=== PATIENT | female | born 1990 | race Caucasian/White ===

== ENCOUNTER 2018-09-30 10:12 | Outpatient (REF) | payer OTHER, SELFPAY ==
--- NOTE | 2018-09-30 09:30 | PAPFT_PTH ---
PATIENT: Poly Valdivia LOC: [facility] U#:[id number] AGE/SX: 27/F ROOM: RE09/30/[address]: DAVID Main : 1990 BED: DIS: 09/30/2018 SPEC #: [id number] RECD: 09/30/18 12:49 STATUS: PAM REPawan #: [id number] JAKY: 09/30/18 09:[address]: Tatiana Cooper DEPT: [facility] RECD BY: Samantha Man ENTERED: 09/30/18 12:49 SP TYPE: PAPFT OTHR DR: Cristiana Smith Tissues: 1 - CX/ENDOCX FOR PAP SMEARS Procedures: PAP THIN PREP/[facility] Screening Comments: [id number]
== END 2018-09-30 10:32 ==
LOC: LBN 10:12
PROVIDERS: PCP Family Medicine; Visit Provider Nurse Practitioner Family
DX: Z12.4 Encounter for screening for malignant neoplasm of cervix (principal)
CPT/HCPCS: 88142

== ENCOUNTER 2019-04-30 11:22 | Outpatient (REF) | payer OTHER, SELFPAY ==
[2019-05-01 15:19] LABS: Chlamydia Result Negative; GC Result Negative; Specimen Description CERVIX
== END 2019-04-30 11:42 ==
LOC: LBN 11:22
PROVIDERS: PCP Family Medicine; Visit Provider Nurse Practitioner Family
DX: Z11.3 Encounter for screening for infections with a predominantly sexual mode of transmission (principal)
CPT/HCPCS: 87491; 87591

== ENCOUNTER 2019-10-08 16:39 | Outpatient (REF) | payer OTHER, SELFPAY ==
--- NOTE | 2019-10-08 14:30 | PAPFT_PTH ---
PATIENT: Poly Valdivia LOC: [facility] U#:[id number] AGE/SX: 28/F ROOM: RE10/08/[address]: DAVID Main : 1990 BED: DIS: 10/08/2019 SPEC #: [id number] RECD: 10/08/19 18:03 STATUS: PAM REQ #: [id number] JAKY: 10/08/19 14:[address]: Tatiana Cooper DEPT: [facility] Cytology RECD BY: Samantha Man ENTERED: 10/08/19 18:03 SP TYPE: PAPFT OTHR DR: Cristiana Smith Tissues: 1 - CX/ENDOCX FOR PAP SMEARS Procedures: PAP THIN PREP/[facility] Screening HPV DNA PROBE Comments: [id number]
[2019-10-09 14:30] LABS: Chlamydia Result Negative (Negative); GC Result Negative (Negative)
== END 2019-10-08 16:59 ==
LOC: LBN 16:39
PROVIDERS: PCP Family Medicine; Visit Provider Nurse Practitioner Family
DX: Z11.3 Encounter for screening for infections with a predominantly sexual mode of transmission (principal); Z12.4 Encounter for screening for malignant neoplasm of cervix; Z11.51 Encounter for screening for human papillomavirus (HPV)
CPT/HCPCS: 87491; 87591; 88142; 87624

== ENCOUNTER 2020-05-05 13:31 | Outpatient (REF) | payer OTHER, SELFPAY ==
[2020-05-10 07:29] LABS: SARS-CoV-2 RNA Undetected (Undetected); SARS-CoV-2 Specimen Source Nasopharynx
== END 2020-05-05 13:51 ==
LOC: NCHCN 13:31
PROVIDERS: PCP Family Medicine; Visit Provider Nurse Practitioner Family
DX: Z20.828 Contact with and (suspected) exposure to other viral communicable diseases (principal)
CPT/HCPCS: U0003

== ENCOUNTER 2021-06-22 14:08 | Outpatient (REF) | payer OTHER, SELFPAY ==
[2021-06-22 14:26] LABS: Abs Immature Grans 0.01 10^3/uL (0.0-0.06); Absolute Basophil Count 0.05 10^3/uL (0.0-0.2); Absolute Eosinophil Count 0.07 10^3/uL (0.0-0.7); Absolute Lymphocyte Count 2.26 10^3/uL (1.2-3.4); Basophils % 0.7; Eosinophils % 0.9; HCT 40.6 % (36.0-46.0); HGB 13.1 g/dL (11.2-15.7); Immature Grans % 0.1; Lymphocytes % 30.2; MCH 30.5 pg (27.0-33.0); MCHC 32.3 % (32.0-36.0); MCV 94.6 fL (80-95); MPV 9.6 fL (8.0-11.0); Monocytes % 5.3; Neutrophils % 62.8; Nucleated RBC 0 %; Platelet Count 391 10^3/uL (130-400); RBC 4.29 10^6/uL (3.93-5.22); RDW 11.9 % (11.7-14.6); RDW-SD 41.2 fL; WBC 7.49 10^3/uL (4.4-10.8)
[2021-06-22 14:48] LABS: Hemoglobin A1C 5.2 % (<5.7)
[2021-06-22 15:11] LABS: Vitamin D 25 Total 42.8 ng/mL (30-100)
[2021-06-22 15:24] LABS: ALT 51 U/L (14-59); AST 21 U/L (15-37); Albumin 4.5 g/dL (3.4-5.0); Alkaline Phosphatase 57 U/L (46-116); Anion Gap 8.3 mmol/L (3-11); BUN 10 mg/dL (7-18); Bilirubin, Total 0.6 mg/dL (0.2-1.0); CO2 27.7 mmol/L (21.0-32.0); Calcium 9.7 mg/dL (8.5-10.1); Calculated LDL 82 mg/dL (<100); Chloride 104 mmol/L (98-107); Cholesterol 176 mg/dL (<200); Glucose 83 mg/dL (74-106); HDL Cholesterol 87 mg/dL (40-60); Potassium 4.2 mmol/L (3.5-5.1); Sodium 140 mmol/L (136-145); TSH (W/Ref FT4) 3.45 uIU/mL (0.36-3.74); Total Protein 7.7 g/dL (6.4-8.2); Triglyceride 37 mg/dL (<150); Vitamin B12 648 pg/mL (193-986)
[2021-06-22 15:29] LABS: Folate > 20.0 ng/mL (8.6-20.0)
[2021-06-26 11:38] LABS: IgA 170 mg/dL (85-499); Interpretation (See Note); Tissue Transglutaminase IgA 2.8 U/mL (<4.0)
[2021-06-26 15:47] LABS: Calprotectin 149.1 mcg/g
[2021-06-27 14:15] LABS: Helicobacter pylori Ag, Feces Negative (Negative)
== END 2021-06-22 14:09 | disposition home or self-care (01) ==
LOC: NCHCN 14:08
PROVIDERS: PCP Family Medicine; Visit Provider Family Medicine
DX: R63.4 Abnormal weight loss (principal); K59.00 Constipation, unspecified; R11.0 Nausea
CPT/HCPCS: 80053; 80061; 82306; 82784; 83516; 87338; 82607; 82746; 83036; 83993; 84443; 85025